=== PATIENT | male | born 1940 | race Caucasian/White ===

== ENCOUNTER 2024-12-17 16:47 | Emergency (ER) | payer MEDICARE, BC, SELFPAY ==
[2024-12-17 16:48] VITALS: BP 151/77
[2024-12-17 17:07] LABS: Hematocrit 39.5 % (39.0-52.0); Hemoglobin 13.6 g/dL (13.0-18.0); Mean Corp Hgb Conc. 34.4 g/dL (33.0-37.0); Mean Corpuscular Volume 88.4 fL (80.0-94.0); Nucleated Red Blood Cells % 0 % (-); Platelet Count 226 10^3/uL (130-400); Red Cell Dist. Width 12.5 % (11.5-14.5)
[2024-12-17 17:20] LABS: ALT (SGPT) 19 U/L (0-50); AST (SGOT) 22 U/L (17-59); Albumin 4.5 g/dl (3.5-5.0); Alkaline Phosphatase 67 U/L (38-126); Blood Urea Nitrogen 28 mg/dl (9-20); Calcium 10.0 mg/dl (8.4-10.2); Carbon Dioxide 28 mmol/L (22-30); Chloride 105 mmol/L (98-107); Glucose 108 mg/dl (70-99); Lipase 143 U/L (23-300); Potassium 4.1 mmol/L (3.5-5.1); Sodium 141 mmol/L (135-145); Total Protein 7.1 g/dl (6.3-8.2); eGFR > 60.00
[2024-12-17 20:13] VITALS: BP 145/74
[2024-12-17 20:14] VITALS: BMI 26.2
[2024-12-17] MEDS: OMNIPAQUE 50 ML PO (20:42)
[2024-12-17] MEDS: NSS 1000 IV (20:42)
[2024-12-17] MEDS: ZOFRAN 4 MG IV (20:43)
[2024-12-17] MEDS: PROTONIX IV 40 MG IV (20:43)
--- NOTE | 2024-12-17 20:55 | ED.GENMED ---
History of Present Illness
General
Chief Complaint: Abdominal Symptoms
Source: patient and family
Exam Limitations: none
Time Seen by Provider: 12/17/24 20:08
Nursing documentation reviewed up to this point in time: agreed with
History of Present Illness
History of Present Illness:
84-year-old male accompanied by son visiting from [place] for 6 weeks of nausea vomiting diarrhea worse when he eats, 10 pound weight loss unintentional drinks beer occasionally non-smoker no prior abdominal surgeries has had diverticulosis and
diverticulitis, has had orthopedic procedures son visited him today, heard the story, encouraged patient to come to ER to get evaluated
Phy Exam
Physical Exam
Physical Exam:
Physical Exam
General: no apparent distress, not acutely ill
Neck: Dry lips
Heart: s1/s2 regular rate and rhythm, no murmur. equal radial pulses.
Lungs: no acute respiratory distress. clear bilaterally
Abdomen: Soft flat nontender
Neuro: alert and oriented. no focal neurological deficits
Skin: no rash
Psychiatric: well kept. interactive and cooperative
Extremities: no edema.
Course
Orders/Labs/Results
Orders:
Orders
12/17/24 16:58
Complete Blood Count/With Diff Urgent
Comprehensive Metabolic Panel Urgent
Lipase Urgent
12/17/24 20:28
CT Abd/pel W Iv And Oral Contr Urgent
Comment:
Reason For Exam: vomiting weighgt loss
0.9% Sodium Chloride 1000 ml [Nss] 1,000 ml IV BOLUS
Iohexol [Omnipaque] See Protocol PO NOW STA
Ondansetron Injectable [Zofran] 4 mg IV NOW STA
Pantoprazole [Protonix IV] 40 mg IV NOW STA
12/17/24 20:58
EKG [Electrocardiogram (*1)] Routine
Reason for Study: Abdominal Pain
EKG- Treatment ONCE
Abnormal Lab Results
12/17/24
16:58
RBC 4.47 L 10^6/uL
(4.70-6.10)
Absolute Monos (auto) 0.8 H 10^3/uL
(0.1-0.6)
Monocytes % 10.4 H %
(1.7-9.3)
BUN 28 H mg/dl
(9-20)
Glucose 108 H mg/dl
(70-99)
12/17/24 16:58
12/17/24 16:58
Vital Signs
Initial and Last Documented VS:
Initial Vital Signs
Temp Pulse Resp BP Pulse Ox
98.5 F 52 18 151/77 98
12/17/24 16:48 12/17/24 16:48 12/17/24 16:48 12/17/24 16:48 12/17/24 16:48
Last Documented Vital Signs
Temp Pulse Resp BP Pulse Ox
98.5 F 52 18 140/77 99
12/17/24 16:48 12/17/24 16:48 12/17/24 16:48 12/17/24 22:00 12/17/24 22:15
MDM/Problems Addressed
Differential Diagnosis Includes:
Dehydration electrolyte abnormality infection malignancy intermittent obstruction
MDM/Problems Addressed:
Vomiting diarrhea weight
*Pulse Oximetry
SaO2: 98
Oxygen Mode of Delivery: Room air
Patient hypoxic: no
*Critical Care Note
Total Time (30-74mins, 75-104mins- exclusive of procedures): Not Applicable
Update Note
Update Note:
Update CT reviewed with radiology has a cyst or mass on his kidney and his kidney follow-up reviewed with the patient and his son
Patient well-appearing here abdomen soft nontender
ED Attending Note
-
Portions of this chart may have been created with voice recognition software.� Occasional wrong word or��sound alike� substitutions may have occurred due to the inherent limitations of voice recognition software.
Discharge Plan
Departure
Patient Disposition: Home (Routine Discharge)
Date of Disposition: 12/17/24
Time of Disposition: 23:43
Patient with high blood pressure during this ER visit?: No
Condition: Good
Discharge Problem:
Acute dehydration
Instructions: Diarrhea in teens and adults, Dehydration, Adult (DC), Nausea and Vomiting, Adult (DC)
Prescriptions:
New
ondansetron 4 mg tablet,disintegrating
4 mg PO TID PRN (Reason: nausea and vomiting) 4 Days Qty: 20 0RF
Referrals:
NONE,* [Family Provider, Internal Medicine]
[facility] [Provider Group] - Follow up in 5-7 days
Activity Restrictions/Additional Instructions:
Zofran 3 times a day as needed for nausea vomit
Drink plenty of fluids
Follow-up with your family doctor to discuss the results of your CAT scan radiology suggesting that you have a follow-up CAT scan with and without contrast or an MRI scan
Return to the ER if worsening symptoms
Interventions
Interventions:
*Risk Screen - Suicide Last Done: 12/17/24 16:48
*General Assessment Last Done: 12/17/24 16:48
*Neglect/Abuse Screening Last Done: 12/17/24 20:14
*ED- Fall Risk Assessment Last Done: 12/17/24 20:14
*ED COVID-19 Vaccine History Last Done: 12/17/24 20:14
SW-Fuyihw-Fcswyxmlps Assessment Last Done: 12/17/24 20:14
Discharge Date and Time
Print Language: KENYAN
[2024-12-17 22:00] VITALS: BP 140/77
[2024-12-17 23:22] VITALS: BP 143/66
== END 2024-12-18 00:05 | disposition home or self-care (01) ==
LOC: EMR 16:47
PROVIDERS: Student in an Organized Health Care Education/Training Program; EMERGENCY PHYSICIAN Emergency Medicine
DX: E86.0 Dehydration (principal)
CPT/HCPCS: 99284; 96374; 96375; 96361; 74177; 80053; 83690; 85025; 93005; Q9967

== ENCOUNTER → 2025-02-25 09:44 | Outpatient (REF) | payer MEDICARE, BC, SELFPAY ==
[2025-02-25 10:27] LABS: Urine Character Clear (Clear)
[2025-02-25 10:36] LABS: Hematocrit 43.6 % (39.0-52.0); Hemoglobin 13.9 g/dL (13.0-18.0); Mean Corp Hgb Conc. 31.9 g/dL (33.0-37.0); Mean Corpuscular Volume 92.0 fL (80.0-94.0); Nucleated Red Blood Cells % 0 % (-); Platelet Count 209 10^3/uL (130-400); Red Cell Dist. Width 12.8 % (11.5-14.5)
[2025-02-25 10:41] LABS: Urine White Cell 0-2 /HPF (0-5)
[2025-02-25 11:10] LABS: ALT (SGPT) 19 U/L (0-50); AST (SGOT) 23 U/L (17-59); Albumin 4.4 g/dl (3.5-5.0); Alkaline Phosphatase 63 U/L (38-126); Blood Urea Nitrogen 26 mg/dl (9-20); Calcium 9.7 mg/dl (8.4-10.2); Carbon Dioxide 29 mmol/L (22-30); Chloride 107 mmol/L (98-107); Glucose 117 mg/dl (70-99); HDL Cholesterol 50 mg/dl; Potassium 4.5 mmol/L (3.5-5.1); Sodium 142 mmol/L (135-145); Total Protein 7.2 g/dl (6.3-8.2); eGFR > 60.00
[2025-02-25 11:26] LABS: LDL Cholesterol, Calculated 92 mg/dl; Very Low Density Lipoprotein 20 mg/dl (0-30)
[2025-02-25 11:33] LABS: Glycohemoglobin (HgbA1c) 5.9 % (4.0-5.6)
[2025-02-25 11:37] LABS: PSA, Total - Screen 4.77 ng/ml (0.0-4.0)
== END ==
LOC: REG 09:44
PROVIDERS: ATTENDING PHYSICIAN Nurse Practitioner Family; FAMILY PHYSICIAN Internal Medicine Geriatric Medicine
DX: F03.94 Unspecified dementia, unspecified severity, with anxiety (principal); R45.4 Irritability and anger; R41.9 Unspecified symptoms and signs involving cognitive functions and awareness; F32.A Depression, unspecified; I10 Essential (primary) hypertension; N40.0 Benign prostatic hyperplasia without lower urinary tract symptoms; Z91.81 History of falling; R73.03 Prediabetes; Z91.89 Other specified personal risk factors, not elsewhere classified; Z12.5 Encounter for screening for malignant neoplasm of prostate
CPT/HCPCS: 36415; 80053; 80061; 81003; 81015; 83036; 84443; 85025; G0103